=== PATIENT | female | born 1965 | race African-American/Black ===

== ENCOUNTER 2016-08-10 20:56 | Emergency (ER) | payer BC ==
[~2016-08-10] VITALS: Ht 165.1 cm; Wt 76.0 kg
[~2016-08-10 20:56] MED LIST: FIORINAL2 PO; OXYC-259 PO
[2016-08-10 21:10] VITALS: BP 122/89; PULSE 97; RESP 16; TEMP 98.2; O2SAT 98
[2016-08-10] MEDS ORDERED: OXYC40TA9 PO (22:30)
[2016-08-10 22:31] VITALS: BP 122/89; PULSE 97; RESP 18; TEMP 98.2; O2SAT 98
[2016-08-10 23:30] VITALS: BP 141/81; PULSE 73; RESP 18; O2SAT 99
[2016-08-10] MEDS ORDERED: KETOROLAC TROMETHAMINE 30 MG/ML (IVP) VIAL IV PUSH ONE (23:45)
[2016-08-10] MEDS ORDERED: PROCHLORPERAZINE INJ 10 MG/2 ML VIAL IV PUSH ONE (23:45)
[2016-08-10] MEDS ORDERED: diphenhydrAMINE HCL 50 MG/ML VIAL IV PUSH ONE (23:45)
[2016-08-10] MEDS ORDERED: SODIUM CHLOR 0.9% 1000 ML INJ 1,000 ML IV ONE (23:45)
--- NOTE | 2016-08-10 23:48 | PD ---
HPI Chief Complaint: Headache Time Seen by Provider: 23:36 Travel History International Travel<30 days: No Contact w/Intl Traveler<30days: No Traveled to known affect area: No History of Present Illness HPI 50-year-old female presents to the emergency department for complaint of recurrent migraine headache. Patient has long-standing history of headaches and frequently comes to the emergency room for breakthrough headache. Patient has associated nausea with photophobia. No new upper or lower extremity numbness tingling weakness or ataxia of gait. Headache is not sudden onset thunderclap or worst ever. Patient used her Fioricet without symptom relief. Patient states she's had numerous imaging studies CT brain and MRI the brain. Patient recently had an MRI and does not want any imaging at this time. Patient states symptoms are typical of her breakthrough migraine. Headache is 8 /10 intensity. No fever chills no recent respiratory illness. PFSH Past Medical History Narrative Medical Recurrent migraines tube ligation ; tobacco use alcohol use; nursing notes reviewed Heart Rhythm Problems: No Cardiac Catheterization: No Cardiovascular Problems: No High Cholesterol: No Congestive Heart Failure: No Diabetes: No Diminished Hearing: No Neurologic: Yes (RIGHT ARM NERVE PAIN , CRPS R ARM ) Immunizations Current: Yes Migraines: Yes Tetanus Vaccination: < 5 Years Influenza Vaccination: Yes ?: Not : 2 Para: 2 Miscarriage: 0 : 0 Tubal Ligation: Yes Past Surgical History Section: Yes Coronary Artery Bypass Graft: No Gynecologic Surgery: Yes Family History Family Myocardial Infarction: Yes Social History Alcohol Use: Yes (QUIT RECENTLY) Tobacco Use: Yes (VAPE) Substance Use: No Allergies-Medications (Allergen,Severity, Reaction): Coded Allergies: Dilantin (Verified Allergy, Severe, Hives, 08/10/16) Gabapentin (Verified Allergy, Severe, Hives, 08/10/16) Reported Meds & Prescriptions Reported Meds & Active Scripts Active Reported Oxycontin (Oxycodone HCl) 40 Mg Tab 40 Mg PO Q12HR Oxycontin (Oxycodone HCl) 10 Mg Tab 10 Mg PO Q8HR Fiorinal (Butalbital/Aspirin/Caffeine) 50-325-40 Mg Cap 1 Cap PO Q4H PRN Do not exceed 6 capsules/day. Review of Systems Except as stated in HPI: all other systems reviewed are Neg General / Constitutional: No: Fever, Chills Eyes: Positive: Photophobia HENT: Positive: Headaches, No: Neck Stiffness Cardiovascular: No: Chest Pain or Discomfort Respiratory: No: Shortness of Breath Gastrointestinal: Positive: Nausea, No: Abdominal Pain Genitourinary: No: Frequency, Dysuria Musculoskeletal: No: Myalgias, Arthralgias Skin: No Rash Neurologic: Positive: Headache, No: Weakness, Dizziness, Syncope, Focal Abnormalities, Coordination Problem, Change in Mentation, Slurred Speech, Paresthesia, Sensory Disturbance Hematologic/Lymphatic: No: Easy Bruising Physical Exam Narrative GENERAL: Well-developed well-nourished female in no acute distress no respiratory distress; GCS 15 SKIN: Warm and dry. HEAD: Normocephalic. EYES: No scleral icterus. No injection or drainage. Funduscopic exam no papilledema. NECK: Supple, trachea midline. No JVD or lymphadenopathy. No meningismus no nuchal rigidity. CARDIOVASCULAR: Regular rate and rhythm without murmurs, gallops, or rubs. RESPIRATORY: Breath sounds equal bilaterally. No accessory muscle use. GASTROINTESTINAL: Abdomen soft, non-tender, nondistended. MUSCULOSKELETAL: No cyanosis, or edema. BACK: Nontender without obvious deformity. No CVA tenderness. Data Data Last Documented VS Vital Signs Date Time Temp Pulse Resp B/P Pulse Ox O2 Delivery O2 Flow Rate FiO2 08/11/16 00:33 89 18 134/77 100 Room Air 08/10/16 22:31 98.2 Orders ^ Saline Lock (08/10/16 23:36) Diphenhydramine Inj (Benadryl Inj) (08/10/16 23:45) Prochlorperazine Inj (Compazine Inj) (08/10/16 23:45) Sodium Chlor 0.9% 1000 Ml Inj (Ns 1000 M (08/10/16 23:45) Ketorolac Inj (Toradol Inj) (08/10/16 23:45) MDM Medical Decision Making Medical Screen Exam Complete: Yes Emergency Medical Condition: Yes Medical Record Reviewed: Yes Differential Diagnosis Cephalgia, recurrent migraine, ICH; unlikely meningitis Narrative Course IV access obtained patient administered normal saline bolus along with Toradol 30 g IV Compazine 10 mg IV and Benadryl 25 mg IV Patient resting comfortably At 12:55 AM patient clinically improved and stable for outpatient management; "my headache is gone; can I go home now ?" Diagnosis Primary Impression: Migraine Qualified Code: G43.909 - Migraine without status migrainosus, not intractable , unspecified migraine type Referrals: Primary Care Physician call for appointment Patient Instructions: General Instructions Additional Instructions: Follow-up with your primary care provider Return to the emergency department for any concerns or change in condition May take ibuprofen/Advil/Motrin every 6-8 hours as needed for pain associated with inflammation--- 600 mg maybe taken as often as every 6-8 hours avoid high- dose ibuprofen for greater than 2-3 days Med/Other Pt SpecificInfo: Prescription(s) given Scripts Ondansetron Odt (Zofran Odt)4 Mg Tab4 Mg SL Q6HR PRN (Nausea/Vomiting) #10 TAB Ref 0 Prov:Josie Sanchez MD 08/11/16 Disposition: 01 DISCHARGE HOME Condition: Stable Josie Sanchez MD August 10, 2016 23:47
[2016-08-11 00:33] VITALS: BP 134/77; PULSE 89; RESP 18; O2SAT 100
[2016-08-11 00:57] VITALS: RESP 18
[2016-08-11] MEDS ORDERED: ZOFR4TAB3 SL (00:57)
== END 2016-08-11 01:14 | disposition home or self-care (01) ==
LOC: PHED 20:56
DX: G43.909 Migraine, unspecified, not intractable, without status migrainosus (principal)
CPT/HCPCS: 96361; 96374; 96375; 99283; J0780; J1200; J1885; J7030